=== PATIENT | female | born 1995 | race Caucasian/White ===

== ENCOUNTER 2021-09-13 09:24 | Observation (INO) | payer BC, SELFPAY ==
[2021-09-13 10:01] VITALS: BP 127/76; PULSE 95
--- NOTE | 2021-09-13 10:10 | OBADM ---
This patient, Lizet Russ, admitted to the OB room OB Post 116 for observation. Patient/family oriented to hospital policies and general routines including ID bracelet, bed and alarms, visiting hours, pain management, procedures, bathroom and other care routines, personal items, smoking policy, room service/diet, and visiting hours. Patient/Family are encouraged to report perceived risks to care and to ask questions if they do not understand what they are told or what they should do.
[2021-09-13 10:16] VITALS: BP 122/74; PULSE 85
--- NOTE | 2021-09-13 10:28 | PC.NURSE ---
1021- Spoke with Dr. Hernandez, informed of patient admission for vaginal pressure. Orders to do gentle SVE and discharge patient home if cervix not open.
--- NOTE | 2021-09-20 11:49 | PM.OBTRLD ---
OB - Triage/Final Diagnosis Visit Information Comments/Additional reasons for admission: I have assessed the risk for this patient, Lizet Russ, and determined that she would benefit from observation care. Final Diagnosis (1) Pelvic pressure in : Code(s): O26.899 - Other specified related conditions, unspecified trimester; R10.2 - Pelvic and perineal pain Status: Acute
== END 2021-09-13 10:35 | disposition home or self-care (01) ==
PROVIDERS: Admitting Provider Obstetrics & Gynecology; Visit Provider Obstetrics & Gynecology
DX: O26.899 Other specified pregnancy related conditions, unspecified trimester (principal); R10.9 Unspecified abdominal pain; Z3A.00 Weeks of gestation of pregnancy not specified
CPT/HCPCS: G0378; G0379

== ENCOUNTER 2021-10-12 16:02 | Inpatient (IN) | payer BC, SELFPAY ==
[2021-10-12] VITALS (14 sets, daily range): BP systolic 129–135; BP diastolic 68–84; PULSE 78–119; RESP 18; TEMP 36.3; O2SAT 97–100; BMI 37.0
--- NOTE | 2021-10-12 16:53 | LDADM ---
This patient, Lizet Russ, was admitted to Labor/Delivery/Recovery 106 on 10/12/21 at 16:02. Plans for labor, pain management and were discussed with patient. Patient/family oriented to hospital policies and general routines including ID bracelet, bed and alarms, visiting hours, pain management, procedures, bathroom and other care routines, personal items, smoking policy, room service/diet and guest tray routines, security routines, and visiting hours. Patient/Family are encouraged to report perceived risks to care and to ask questions if they do not understand what they are told or what they should do. See OBIX for further documentation.
[2021-10-12 17:28] LABS: Basophils Percent Auto 0.3 % (0.2-1.2); Eosinophils Percent Auto 0.4 % (0-4.4); Hematocrit 37.2 % (37.0-47.0); Hemoglobin 12.7 g/dL (12.0-15.0); Immature Granulocyte Absolute 0.04 K/mm3 (0.00-0.031); Immature Granulocyte Percent A 0.4 % (0-0.5); Lymphocytes Absolute Auto 1.67 K/mm3 (0.9-3.2); Lymphocytes Percent Auto 15.1 % (18.3-44.2); Mean Corpuscular HGB Conc 34.1 g/dl (32-36); Mean Corpuscular Hemoglobin 32.1 pg (26-34); Mean Corpuscular Volume 93.9 fl (80-100); Mean Platelet Volume 11.5 fl (7.4-10.4); Monocytes Absolute Auto 0.6 K/mm3 (0.1-0.6); Monocytes Percent Auto 5.8 % (2.6-8.5); Neutrophils Absolute Auto 8.6 K/mm3 (1.3-6.7); Platelet Count Result 204 k/mm3 (150-375); Red Blood Count 3.96 M/mm3 (4.2-5.4); Red Cell Distribution Width 12.6 % (11.5-14.5)
[2021-10-12] MEDS: DINOPROSTONE 10 MG VAG INSERT VAGINAL (17:37)
--- NOTE | 2021-10-12 20:15 | WPDANESEPP ---
Anes - Eval Pre Procedure Procedure: Labor epidural Date/Time: 10/12/21 20:15 Surgeon: jayson Pre Op Diagnosis: iol Patient Data Age: 26 Gender: F Height: 1.57 m Weight: 92 kg Last Vital Signs Pulse 82 10/12/21 18:12 BP 129/68 10/12/21 18:12 Pulse Ox 99 10/12/21 17:12 O2 Del Method Room Air 10/12/21 16:52 Allergies Allergy/AdvReac Type Severity Reaction Status Date / Time No Known Allergies Allergy Verified 10/12/21 16:57 Home Medications Medication Instructions Recorded Confirmed Type calcium carb-vitamin D3 ER 600 mg 1 tablet PO DAILY 09/20/21 10/12/21 History (1,500 mg)-500 unit tablet,ER 24 hr docusate sodium 100 mg capsule 100 mg PO DAILY 09/20/21 10/12/21 History (Colace) ferrous sulfate 325 mg (65 mg 325 mg PO DAILY 09/20/21 10/12/21 History iron) tablet lorazepam 0.5 mg tablet 0.5 mg PO DAILY PRN Anxiety 09/20/21 10/12/21 History prenat.vits,karoline,yjn-yshb-rsooo 1 tablet PO HS 09/20/21 10/12/21 History Laboratory Tests 10/12/21 10/12/21 10/12/21 17:15 17:15 17:15 WBC 11.0 K/mm3 H K/mm3 (4.5-10.0) RBC 3.96 M/mm3 L M/mm3 (4.2-5.4) Hgb 12.7 g/dL g/dL (12.0-15.0) Hct 37.2 % % (37.0-47.0) MCV 93.9 fl fl (80-100) MCH 32.1 pg pg (26-34) MCHC 34.1 g/dl g/dl (32-36) RDW 12.6 % % (11.5-14.5) Plt Count 204 k/mm3 k/mm3 (150-375) MPV 11.5 fl H fl (7.4-10.4) Immature Gran % (Auto) 0.4 % % (0-0.5) Neut % (Auto) 78.0 % H % (45.5-73.1) Lymph % (Auto) 15.1 % L % (18.3-44.2) Dare % (Auto) 5.8 % % (2.6-8.5) Eos % (Auto) 0.4 % % (0-4.4) Baso % (Auto) 0.3 % % (0.2-1.2) Lymph # (Auto) 1.67 K/mm3 K/mm3 (0.9-3.2) Dare # (Auto) 0.6 K/mm3 K/mm3 (0.1-0.6) Eos # (Auto) 0.0 K/mm3 K/mm3 (0-0.3) Baso # (Auto) 0.0 K/mm3 K/mm3 (0.0-0.1) Abs Immat Gran (auto) 0.04 K/mm3 H K/mm3 (0.00-0.031) Absolute Neuts (auto) 8.6 K/mm3 H K/mm3 (1.3-6.7) Absolute Nucleated RBC 0.0 K/mm3 K/mm3 (0.0-0.012) Nucleated RBC % 0.0 % % (0.0-0.2) RPR Pending Blood Type O Positive Antibody Screen Negative Patient hx anesthesia problems: none Family hx anesthesia problems: none Results Review: All pre-operative results and documents have been reviewed as part of the pre-operative evaluation. [facility] Past Medical History Medical History (Updated 10/12/21 @ 20:17 by Monica Cifuentes CRNA) Anemia Anxiety and depression Obesity (BMI 30-39.9) Social History Social History Smoking status: Never smoker Second hand tobacco smoke exposure: No Substance use: never Spiritual care concerns: No Exam Day of Procedure 10/12/21 20:15 Heart: regular rate and rhythm Lungs: normal air movement Airway: Mallampati scale Neurological: alert and oriented
[2021-10-13] VITALS (175 sets, daily range): BP systolic 71–163; BP diastolic 15–107; PULSE 53–299; RESP 14–18; TEMP 36.2–37.7; O2SAT 96–100
[2021-10-13] MEDS: ZOLPIDEM TARTRATE (*CRX) 5 MG TABLET PO (01:03)
[2021-10-13] MEDS: LACTATED RINGERS 1,000 ML 125 ML IV CONT ×2 (04:00→10:42)
[2021-10-13] MEDS: OXYTOCIN 30 UNITS/NS 500 ML 30 UNITS/500 ML BAG 6 UNITS IV CONT (04:30)
[2021-10-13 05:54] LABS: Rapid Plasma Reagin Non-Reactive (NonReactive)
[2021-10-13] MEDS: fentaNYL CITRATE INJ (*CRX) 100 MCG/2 ML VIAL 50 MCG IV PUSH (06:35)
--- NOTE | 2021-10-13 08:50 | WPDOBADMIT ---
Obstetrics - Admit Note Admission Note: record reviewed. Additions to the history and/or subsequent changes in the physical findings follow. 26 y/o G1 at 40 3/7 weeks here for induction of labor. Cervidil last evening, then had SROM, so it was withdrawn. Now feeling more painful contractions. GBS neg. AVSS NST reactive TOCO: contractions every 2-4 min ABD soft, nontender, gravid, verrtex EXT nontender Cervix 3/80/-2. Gross ROM. A: IUP at term here for induction of labor. P: Oxytocin as needed. Anticipate .
--- NOTE | 2021-10-13 11:51 | PM.OBPNLAB ---
Pain Control Date/time seen: 10/13/21 11:51 Comments: Comfortable with epidural. AVSS NST reactive, with variable decelerations with early timing. Cervix 4-5/90/-1 Continue labor. Amnioinfusion as needed.
[2021-10-13] MEDS: SODIUM CHLORIDE 0.9% IV 300 ML 600 ML I-UTERINE (12:13)
--- NOTE | 2021-10-13 17:34 | PM.OBPRVD ---
OB - Delivery Note Procedure Delivery date: 10/13/21 Procedure: Induction of labor with Induction method: Per Pitocin Protocol Delivery augmentation: Pitocin Delivery monitor: External FHT, External Uterine, Internal FHT and Internal Uterine Route of delivery: Laceration Description: Vaginal Delivery repair: vicryl (3-0) Quantitative Blood Loss (ml): 120 Anesthesia type: Epidural Disposition: PACU Complications: None Narrative: 26 y/o G1 at 40 3/7 weeks gestation who presented to the hospital for induction of labor. Cervidil was placed overnight. She had SROM and the Cervidil was withdrawn. Oxytocin was administered intravenously. She received an epidural for pain control. Her labor progressed and her cervix dilated completely. She pushed with good effort and delivered the 's head to the perineum. A loose nuchal cord was reduced and the body delivered. The cored was reduced and the nose and mouth were bulb suctioned. After a delay, the cord was clamped and cut. The was handed off the field. Cord blood was collected. The placenta delivered spontaneously and was grossly normal in appearance. The usual 3 vessel cord was noted. A shallow, distal vaginal laceration was sustained. This was reapproximated using 3 0 Vicryl in a single ytzsph-ud-xogsg stitch. Excellent hemostasis resulted as did excellent reapproximation of the normal anatomy. Needle and instrument counts were correct. The patient was taken to recovery room in stable condition. The infant went to the nursery in stable condition. I was present and scrubbed for the entire delivery. [place] Baby Date of : 10/13/21 Time of : 17:22 Weeks of gestation at delivery: 40 Infant gender: Male Weight (pounds): 7 Weight (ounces): 2 presentation: vertex position: Left Occiput Anterior Placenta delivery description: Spontaneous and Normal Configuration Cord Vessel Description: 3 Vessels and Delayed Cord Clamping score one minute: 9 score five minutes: 9
--- NOTE | 2021-10-13 17:37 | PM.OBDSVD ---
DS: Admitting Diagnosis Discharge Date 10/15/21 Admitting Diagnosis IUP at 40 3/7 weeks DS: Discharge Diagnosis Discharge Diagnosis (1) (normal spontaneous vaginal delivery): Code(s): O80 - Encounter for full-term uncomplicated delivery Status: Acute OB - DS: Summary OB Procedures : None OB Procedures Intrapartum: Spontaneous Vag Delivery OB Procedures: : None Time Spent with Patient Time attestation: Total time spent providing and/or coordinating discharge services: DS: Data Data Completed and Pending Labs on day of discharge: Labs from last 24 hours 10/12/21 10/12/21 17:15 17:15 RPR Non-reactive Blood Type O Positive Antibody Screen Negative Discharge Plan Discharge Attending physician on discharge: Luigi Hernandez Discharging Clinician: Luigi Hernandez Patient Disposition: Home, Self-Care Activity: pelvic rest Diet: regular Discharge Instructions: Call or return if temperature above 100.4? F, increased abdominal pain, increased vaginal bleeding or any new problems. Stand Alone Forms: General Discharge Information Follow-up/Referrals: Luigi Hernandez MD [Physician] - 6 Weeks Discharge Medications: New ibuprofen 600 mg tablet 600 mg PO Q6H PRN (Reason: cramps) Qty: 30 0RF Continued #2 Tablet 1 tablet PO HS lorazepam 0.5 mg Tablet 0.5 mg PO DAILY PRN (Reason: Anxiety) docusate sodium [Colace] 100 mg Capsule 100 mg PO DAILY All Day Calcium 600 mg(1,500mg) -500 unit Tablet Extended Release 24 Hr 1 tablet PO DAILY Discontinued ferrous sulfate 325 mg (65 mg iron) Tablet 325 mg PO DAILY Date of admission: 10/12/21 16:02 Primary Care Provider: Dana Ventura Admitting Provider: Luigi Hernandez Attending physician on admission: Luigi Hernandez Condition: Stable
[2021-10-13] MEDS: OXYTOCIN 30 UNITS/NS 500 ML 30 UNITS/500 ML BAG 125 UNITS IV CONT (17:58)
[2021-10-13] MEDS: WITCH HAZEL 40 PADS 1 PAD TOPICAL (19:55)
[2021-10-13] MEDS: BENZOCAINE 20% AER SPR (*SP) 56 GM CAN 1 SPRAY TOPICAL (19:55)
--- NOTE | 2021-10-13 20:00 | PC.NURSE ---
Patient transferred to post room #281 per wheelchair from labor and delivery. Support person present. Oriented to unit, room, information board, rooming in, admission packet and security measures. Patient verbalizes understanding.
[2021-10-13] MEDS: IBUPROFEN 600 MG TABLET PO (23:22)
[2021-10-13] MEDS: ACETAMINOPHEN 325 MG TABLET 650 MG PO (23:22)
[2021-10-14] VITALS: BP 129/67; PULSE 87; RESP 16; TEMP 37
[2021-10-14 03:54] VITALS: BP 116/63; PULSE 76; RESP 18; TEMP 36.8
[2021-10-14 05:57] LABS: Hematocrit 33.2 % (37.0-47.0); Hemoglobin 11.4 g/dL (12.0-15.0)
[2021-10-14 08:50] VITALS: BP 110/57; PULSE 64; RESP 18; TEMP 36.5; O2SAT 100
[2021-10-14] MEDS: ACETAMINOPHEN 325 MG TABLET 650 MG PO (10:54)
[2021-10-14] MEDS: MULTIVIT/MIN/PREN/FOL AC/IRON TABLET 1 TAB PO (10:54)
[2021-10-14] MEDS: IBUPROFEN 600 MG TABLET PO (10:55)
[2021-10-14 12:08] VITALS: BP 122/66; PULSE 70; RESP 16; TEMP 36.8; O2SAT 98
--- NOTE | 2021-10-14 14:33 | PM.OBPNVD ---
OB - PN: Subj Subjective Date/time seen: 10/14/21 14:33 Narrative: Pain OK. Would like circumcision for son. OB - PN: Obj Data Labs CBC & Chem 7: 10/14/21 04:54 Labs: Laboratory Results - last 24 hr 10/14/21 04:54 Hgb 11.4 L Hct 33.2 L OB - PN A/P Plan Comments: A: PPD#1, doing well. P: Routine care. Reviewed circ. Exam Psych: Other: AVSS ABD soft, nontender, fundus firm EXT nontender
--- NOTE | 2021-10-14 14:52 | WPDANLDPN2 ---
Anes-Prog Note L&D Date/Time: 10/14/21 14:52 Neuro status: Neuro function grossly intact. Vital Signs: Last Vital Signs Temp 36.8 C 10/14/21 12:08 Pulse 70 10/14/21 12:08 Resp 16 10/14/21 12:08 BP 122/66 10/14/21 12:08 Pulse Ox 98 10/14/21 12:08 O2 Del Method Room Air 10/12/21 16:52 Pain score (VAS): 0 I/O: Intake & Output 10/13/21 10/14/21 10/14/21 23:59 07:59 15:59 Intake Total 240 Output Total 120 Balance 120 Patient feedback: Patient satisfied with anesthetic care.
--- NOTE | 2021-10-14 14:53 | PC.NURSE ---
[id number] Introductions were made, then consulted with patient to assess needs related to . Mother led the conversation with her experience feeding her so far. Mother works well with her with encouragement and education. Encouraged understanding of the benefits of skin to skin (unwrapping and placing vertically on her chest), responsive feeding and how to watch for early feeding signs, frequency of feeding on demand about every 8-12 times in 24 hours (every 2-3 hours), milk production, duration of feeding, signs of adequate intake/output and how to record on the feeding sheet. Reviewed positioning and ear, shoulder, hip alignment, supporting the breast, asymmetrical latch (off-center), and leading with the chin with a big open side gape. Infant latched optimally to the left breast in football position. Education given to mother of how to visualize suck/swallow ratios and drinking at the breast. Infant was able to maintain latch without discomfort to mother. Nipple care reviewed with optimal latch and good positioning. Reminding mother of comfort measures of healing with a warm and wet washcloth to rinse breast, then leave open to air-dry as needed. Reviewed good handwashing when or touching the breast/nipples to prevent infection. Resources used to facilitate learning were used with the visual handouts/ tool/mom and baby guide. Mother states it is more difficult to latch to the right breast. Mother voiced understanding of responsive feedings, stimulating with skin to skin, hand expressed colostrum, talking to to encourage if it has been 2 -3 hours since the start of the last , to call if does not latch or there is discomfort with . Mother plans to call for assistance with latching to the right breast if needed. Reported to the primary RN. [id number] Consulted with patient to assess needs related to . Mother led conversation with her experience with feeding baby so far. Mother works well with her with encouragement. Reviewed working with infant, breast, nipples and how to protect the nipples with an optimal deep latch, good positioning, and good hand washing. Encouraged understanding the benefits of skin to skin, responding to feeding cues, frequencies of feeding 8-12 times in 24 hours (approximately 2-3 hours), duration of feedings, milk production, intake/output feeding sheet and signs of adequate intake encouraging swallowing at the breast. Father is actively involved with care and mother has tried many of the tricks she has learned to help infant wake to feed. presents with gaggy reflex from time to time. RN changed a large transitional stool diaper as mother gets some lunch to eat. shows minimal feeding cues when placed skin to skin on mother. There's no latch attempt with to the breast. Mother hand expresses 1.5 mls of colostrum and it is syringe fed to while infant sucks on a gloved finger. responds to finger touching the top of the lip with a wide open mouth. Reviewed positioning and alignment, supporting breast, off-centered (asymmetrical latch) and leading with the chin with big open wide gape. Infant latched optimally to the right breast in football position. Education given to mother of how to visualize suck/swallow ratios and drinking at the breast. Infant was able to maintain latch without discomfort to mother. Nipple care reviewed with optimal latch and good positioning. Reviewed using clean hand when touching her nipples. Resources used to facilitate learning were used from the visual handout/ tool/mom and baby guide. Mother voiced understanding of the education shared, calling for assistance if the infant does not latch or if there is discomfort with . Reported to the primary RN.
[2021-10-14 16:45] VITALS: BP 102/60; PULSE 72; RESP 12; TEMP 36.4
[2021-10-14 20:02] VITALS: BP 128/78; PULSE 75; RESP 18; TEMP 36.7; O2SAT 98
[2021-10-15 09:00] VITALS: BP 122/83; PULSE 64; RESP 16; TEMP 36.6
[2021-10-15] MEDS: IBUPROFEN 600 MG TABLET PO (10:36)
[2021-10-15] MEDS: MULTIVIT/MIN/PREN/FOL AC/IRON TABLET 1 TAB PO (10:36)
--- NOTE | 2021-10-15 11:24 | PM.OBPNVD ---
OB - PN: Subj Subjective Date/time seen: 10/15/21 11:24 Narrative: Pain OK. Would like to go home. OB - PN: Obj Data Labs CBC & Chem 7: 10/14/21 04:54 OB - PN A/P Plan Comments: A: PPD#2, doing well. P: Home to f/u 6 weeks. Exam Psych: Other: AVSS ABD soft, nontender, fundus firm EXT nontender
[2021-10-17 14:18] VITALS: BP 132/76; PULSE 78; RESP 16; TEMP 36.8; O2SAT 98
== END 2021-10-15 13:01 | disposition home or self-care (01) | DRG 807 ==
LOC: ANHLDR 10-13 17:38 → ANHOB2 10-13 20:02
PROVIDERS: Admitting Provider Obstetrics & Gynecology; Visit Provider Obstetrics & Gynecology
DX: O36.8330 Maternal care for abnormalities of the fetal heart rate or rhythm, third trimester, not applicable or unspecified (principal); Z37.0 Single live birth; Z3A.40 40 weeks gestation of pregnancy; O70.1 Second degree perineal laceration during delivery
CPT/HCPCS: 36415; 84112; 85014; 85018; 85025; 86592; 86850; 86900; 86901; A9270; J2590; J2795; J3010; J7030; J7120

== ENCOUNTER → 2023-04-19 15:32 | Outpatient (CLI) | payer BC, SELFPAY ==
--- NOTE | ~2023-04-19 | US_ITS ---
EXAMINATION: US OB /maternal detail DATE: 04/19/2023 16:12 INDICATION: Encounter for screening for malformation. TECHNIQUE: Real-time ultrasound of the pelvis was performed. COMPARISON: None. FINDINGS: There is a single living fetus in vertex presentation. The placenta is anterior and fundal, 9.5 cm f rom the cervix.. heart rate is 139 beats per minute (bpm). The cervical length is 4.1 cm on tra nsabdominal images, which is normal. The amniotic fluid volume is subjectively normal. The following biometric data were obtained: Biparietal diameter (BPD): 4.9 cm; head circumference (HC): 18.3 cm; abdominal circumference (AC): 15 .8 cm; femur length (FL): 3.2 cm. These measurements are concordant. Estimated weight is 356 g +/- 53 g, which correlates with the 40th percentile when 09/02/23 is u sed as estimated date of delivery. As single measurements, these parameters are each equal to the following estimated gestational ages: BPD: 20 weeks 6 days. HC: 20 weeks 5 days. AC: 20 weeks 6 days. FL: 19 weeks 6 days. estimated gestational age based solely on measurements from this exam is 20 weeks 4 days +/- 1 weeks 3 days. The cerebral ventricles, cerebellum, cisterna magna, nuchal fold, lip, and visualized portions of the spine are normal. The heart is normal. The diaphragm, stomach, kidneys, and bladder are normal. Ther e are two umbilical arteries to yield a 3-vessel cord. The cord insertion is normal. IMPRESSION: 1. Single living fetus in vertex presentation. 2. Estimated weight is 356 g +/- 53 g, which correlates with the 40th percentile when 09/02/23 is used as estimated date of delivery. 3. Normal anatomic survey. Reviewed, dictated and finalized at location E. POL[facility]ER IMPRESSION: 1. Single living fetus in vertex presentation. 2. Estimated weight is 356 g +/- 53 g, which correlates with the 40th pe rcentile when 09/02/23 is used as estimated date of delivery. 3. Normal anatomic survey.
== END ==
PROVIDERS: PCP Obstetrics & Gynecology; Visit Provider Obstetrics & Gynecology
DX: Z36.3 Encounter for antenatal screening for malformations (principal)
CPT/HCPCS: 76805

== ENCOUNTER 2023-08-19 07:07 | Inpatient (IN) | payer BC, SELFPAY ==
[2023-08-19] VITALS (105 sets, daily range): BP systolic 101–163; BP diastolic 43–148; PULSE 49–224; RESP 18; TEMP 36.3–37.2; O2SAT 86–100; BMI 36.3
[2023-08-19] MEDS: LACTATED RINGERS 1,000 ML 125 ML IV CONT ×2 (08:07→12:34)
[2023-08-19] MEDS: OXYTOCIN 30 UNITS/NS 500 ML 30 UNITS/500 ML BAG IV CONT (08:07)
--- NOTE | 2023-08-19 08:14 | LDADM ---
This patient, Lizet Russ, was admitted to Labor/Delivery/Recovery 107 on 08/19/23 at 07:07. Plans for labor, pain management and were discussed with patient. Patient/family oriented to hospital policies and general routines including ID bracelet, bed and alarms, visiting hours, pain management, procedures, bathroom and other care routines, personal items, smoking policy, room service/diet and guest tray routines, security routines, and visiting hours. Patient/Family are encouraged to report perceived risks to care and to ask questions if they do not understand what they are told or what they should do. See OBIX for further documentation.
[2023-08-19 08:25] LABS: Basophils Percent Auto 0.4 % (0.2-1.2); Eosinophils Absolute Auto 0.1 K/mm3 (0-0.3); Eosinophils Percent Auto 0.9 % (0-4.4); Hematocrit 35.2 % (37.0-47.0); Hemoglobin 11.9 g/dL (12.0-15.0); Immature Granulocyte Absolute 0.04 K/mm3 (0.00-0.031); Immature Granulocyte Percent A 0.6 % (0-0.5); Lymphocytes Absolute Auto 1.97 K/mm3 (0.9-3.2); Lymphocytes Percent Auto 28.7 % (18.3-44.2); Mean Corpuscular HGB Conc 33.8 g/dl (32-36); Mean Corpuscular Hemoglobin 30.9 pg (26-34); Mean Corpuscular Volume 91.4 fl (80-100); Mean Platelet Volume 12.8 fl (7.4-10.4); Monocytes Absolute Auto 0.6 K/mm3 (0.1-0.6); Monocytes Percent Auto 8.3 % (2.6-8.5); Neutrophils Absolute Auto 4.2 K/mm3 (1.3-6.7); Neutrophils Percent Auto 61.1 % (45.5-73.1); Platelet Count Result 149 k/mm3 (150-375); Red Blood Count 3.85 M/mm3 (4.2-5.4); Red Cell Distribution Width 13.1 % (11.5-14.5); White Blood Count 6.9 K/mm3 (4.5-10.0)
--- NOTE | 2023-08-19 08:43 | WPDOBADMIT ---
Obstetrics - Admit Note Admission Note: record reviewed. No pertinent additions to the history and/or any subsequent changes in the physical findings that are not consistent with the expected course of the were found. Additions to the history and/or subsequent changes in the physical findings follow. None. Admitted at 37 3 with SROM not in labor. Cervix /high. Will augment with pitocin. FHT cat I
--- NOTE | 2023-08-19 13:48 | WPDANESEPPF ---
Anes - Initial Pre Proc Eval Procedure: labor epidural Date/Time: 08/19/23 13:48 Surgeon: Luigi Hernandez MD Pre Op Diagnosis: labor pain Pre Op Diagnosis: leaking Patient Data Age: 27 Gender: F Height: 1.57 m Weight: 90 kg Last Vital Signs Temp 36.4 C 08/19/23 12:00 Pulse 73 08/19/23 13:46 BP 133/79 08/19/23 13:46 Pulse Ox 99 08/19/23 13:46 O2 Del Method Room Air 08/19/23 08:13 Allergies Allergy/AdvReac Type Severity Reaction Status Date / Time No Known Allergies Allergy Verified 08/19/23 08:19 Home Medications Medication Instructions Recorded Confirmed Type docusate sodium 100 mg capsule 100 mg PO DAILY 09/20/21 10/12/21 History (Colace) lorazepam 0.5 mg tablet 0.5 mg PO DAILY PRN Anxiety 09/20/21 10/12/21 History prenat.vits,karoline,pew-pqgd-nexzk 1 tablet PO HS 09/20/21 10/12/21 History sertraline 100 mg tablet mg 08/19/23 08/19/23 History Laboratory Tests 08/19/23 08:08 WBC 6.9 K/mm3 (4.5-10.0) RBC 3.85 L M/mm3 (4.2-5.4) Hgb 11.9 L g/dL (12.0-15.0) Hct 35.2 L % (37.0-47.0) MCV 91.4 fl (80-100) MCH 30.9 pg (26-34) MCHC 33.8 g/dl (32-36) RDW 13.1 % (11.5-14.5) Plt Count 149 L k/mm3 (150-375) MPV 12.8 H fl (7.4-10.4) Immature Gran % (Auto) 0.6 H % (0-0.5) Neut % (Auto) 61.1 % (45.5-73.1) Lymph % (Auto) 28.7 % (18.3-44.2) Harlan % (Auto) 8.3 % (2.6-8.5) Eos % (Auto) 0.9 % (0-4.4) Baso % (Auto) 0.4 % (0.2-1.2) Lymph # (Auto) 1.97 K/mm3 (0.9-3.2) Harlan # (Auto) 0.6 K/mm3 (0.1-0.6) Eos # (Auto) 0.1 K/mm3 (0-0.3) Baso # (Auto) 0.0 K/mm3 (0.0-0.1) Abs Immat Gran (auto) 0.04 H K/mm3 (0.00-0.031) Absolute Neuts (auto) 4.2 K/mm3 (1.3-6.7) Absolute Nucleated RBC 0.000 K/mm3 (0.0-0.012) Nucleated RBC % 0.0 % (0.0-0.2) RPR Pending Blood Type O Positive Antibody Screen Negative Patient hx anesthesia problems: none Family hx anesthesia problems: none Results Review: All pre-operative results and documents have been reviewed as part of the pre-operative evaluation. [facility] Past Medical History Medical History (Updated 10/13/21 @ 17:37 by Luigi Hernandez MD) Anemia Anxiety and depression Obesity (BMI 30-39.9) Family History Family History (Updated 08/15/23 @ 14:37 by Jonathon Jamison RN) Father Hypertension Social History Social History Smoking status: Never smoker Second hand tobacco smoke exposure: No Substance use: never Do You Feel Safe in your Home?: Yes Lack of Transportation: No Lack of Food: Never True Current Housing: I Have Housing Concerned About Future Housing: No Difficulty Paying Gas/Electric Bills: No Difficulty Paying for Meds: No Currently Unemployed: No Education: Associate Degree Difficulty w/ Childcare or Family Care: No Spiritual care concerns: No Anes - Eval Final PreProcedure Day of Procedure 08/19/23 13:48 Patient weight: obese ASA classification: II Anesthetic plan: proceed Anesthesia type and monitoring: regional epidural and standard monitoring Results Review: All pre-operative results and documents have been reviewed as part of the pre-operative evaluation. Informed Consent: The patient's anesthetic plan and its attendant risks and benefits were discussed with the patient/family/POA. Questions were solicited and answers provided to the satisfaction of the patient/family/POA.
--- NOTE | 2023-08-19 15:17 | PM.OBPRVD ---
OB - Vaginal Delivery Note Procedure Delivery date: 08/19/23 Delivery augmentation: Pitocin Delivery monitor: External FHT and External Uterine Route of delivery: Laceration Description: None Specimen: No Quantitative Blood Loss (ml): 100 Anesthesia type: Epidural Disposition: Floor Complications: No immediate complications Baby Date of : 08/19/23 Weeks of gestation at delivery: 37 (37 4/7) Infant gender: Male presentation: vertex position: Right Occiput Anterior Placenta delivery description: Spontaneous Cord Vessel Description: 3 Vessels, Tight and Around Body (shoulder and body)
--- NOTE | 2023-08-19 15:18 | PM.OBDSVD ---
DS: Admitting Diagnosis Discharge Date 08/20/23 Admitting Diagnosis IUP 37 07/21 with SROM not in labor DS: Discharge Diagnosis Discharge Diagnosis (1) (normal spontaneous vaginal delivery): Code(s): O80 - Encounter for full-term uncomplicated delivery Status: Acute OB - DS: Summary OB Procedures : Ultrasound OB Procedures Intrapartum: Spontaneous Vag Delivery OB Procedures: : None Peripartum Data Infant Delivery Method: Natural Vaginal Laceration Description: None complications: none Status at Discharge Functional status at discharge: independent ambulation Overall status at discharge: patient is progressing back to baseline Time Spent with Patient Time attestation: Total time spent providing and/or coordinating discharge services: DS: Data Data Completed and Pending Labs on day of discharge: Labs from last 24 hours 08/19/23 08:08 WBC 6.9 RBC 3.85 L Hgb 11.9 L Hct 35.2 L MCV 91.4 MCH 30.9 MCHC 33.8 RDW 13.1 Plt Count 149 L MPV 12.8 H Immature Gran % (Auto) 0.6 H Neut % (Auto) 61.1 Lymph % (Auto) 28.7 Grimes % (Auto) 8.3 Eos % (Auto) 0.9 Baso % (Auto) 0.4 Lymph # (Auto) 1.97 Grimes # (Auto) 0.6 Eos # (Auto) 0.1 Baso # (Auto) 0.0 Abs Immat Gran (auto) 0.04 H Absolute Neuts (auto) 4.2 Absolute Nucleated RBC 0.000 Nucleated RBC % 0.0 RPR Pending Blood Type O Positive Antibody Screen Negative Discharge Plan Discharge Attending physician on discharge: Luigi Hernandez Consulting providers: Jalil Lindsey; Harvey Mcdonnell Discharging Clinician: Luigi Hernandez Anticipated Discharge Date/Time: 08/21/23 15:19 Patient Disposition: Home, Self-Care Activity: may shower and pelvic rest Diet: regular Discharge Instructions: Call or return if temperature above 100.4? F, increased abdominal pain, increased vaginal bleeding or any new problems. Education: Mom and Baby Guide Given to: Mother Follow-Up: Call your delivering provider's office for an appointment to be seen in: 4 Weeks Mom and baby should come to the [facility] for the follow-up appointment. Appointment Date/Time: August 22, 2023 at 11:00 am What to expect at your follow-up visit: Physical Assessment Call [phone] if you are unable to keep your appointment time. BREAST CARE: * Wear a snug supportive bra. * For engorgement discomfort: Breast Feeding: * Apply warm moist washcloths * Express milk as needed to relieve engorgement * Wear loose clothing * For sore nipples: * Identify correct latch-on * Apply warm moist washcloths before and after nursing * Air dry nipples after nursing * May apply Lansinoh cream to nipples EPISIOTOMY/PERINEAL CARE: * Until bleeding stops, use your genesis bottle after urinating * Change your pad frequently throughout the day * You may take sitz baths several times a day (fill your bathtub with warm water and soak for 20 minutes.) Do NOT bathe in the water * No tub baths until seen by your physician - You may shower ACTIVITY: * Rest as much as possible. * Do not exercise or lift anything heavier than your baby (such as laundry or other children.) * Avoid stairs or driving as much as possible. * Do not put anything into the vagina. No douching, tampons, or sexual activity until seen by physician. NOTIFY PHYSICIAN IF YOU HAVE ANY QUESTIONS OR IF ANY OF THE FOLLOWING SYMPTOMS OCCUR: * If your perineum becomes red, swollen, or more painful than what you have experienced in the hospital. * If your vaginal bleeding becomes foul smelling. * If your vaginal bleeding becomes more heavy than a period or if your bleeding changes from pink to bright red. However, you may pass an occasional walnut-sized clot once or twice for the first week . * If you experience a sharp, shooting pain in you calves. * If you discov
[2023-08-19] MEDS: OXYTOCIN 30 UNITS/NS 500 ML 30 UNITS/500 ML BAG 125 UNITS IV CONT (15:40)
[2023-08-19] MEDS: BENZOCAINE 20% AER SPR (*SP) 56 GM CAN 1 SPRAY TOPICAL (17:20)
[2023-08-19] MEDS: WITCH HAZEL 40 PADS 1 PAD TOPICAL (17:20)
[2023-08-20 00:54] VITALS: BP 120/74; PULSE 62; RESP 18; TEMP 36.7; O2SAT 98
[2023-08-20] MEDS: IBUPROFEN 600 MG TABLET PO (04:24)
[2023-08-20 05:29] LABS: Hematocrit 35.1 % (37.0-47.0); Hemoglobin 11.8 g/dL (12.0-15.0)
--- NOTE | 2023-08-20 07:29 | WPDANLDPN2 ---
Anes-Prog Note L&D Date/Time: 08/20/23 07:29 Comfortable throughout: labor and delivery Neuraxial method: epidural Epidural/Spinal procedure site: clean & non-tender Neuro status: Neuro function grossly intact. Cardiovascular status: normal Respiratory status: normal Airway patency: baseline Mental status: baseline Post-Op hydration status: normal Vital Signs: Last Vital Signs Temp 36.7 C 08/20/23 00:54 Pulse 62 08/20/23 00:54 Resp 18 08/20/23 00:54 BP 120/74 08/20/23 00:54 Pulse Ox 98 08/20/23 00:54 O2 Del Method Room Air 08/19/23 21:40 Pain score (VAS): 1 I/O: Intake & Output 08/19/23 08/19/23 08/20/23 15:59 23:59 07:59 Intake Total 1000 Output Total 100 50 Balance 900 -50 Post-procedural complaints: none Patient feedback: Patient satisfied with anesthetic care.
[2023-08-20] MEDS: MULTIVIT/MIN/PREN/FOL AC/IRON TABLET 1 TAB PO (08:14)
[2023-08-20 08:25] VITALS: BP 130/80; PULSE 66; RESP 16; TEMP 36.8; O2SAT 98
[2023-08-20 09:05] LABS: Rapid Plasma Reagin Non-Reactive (NonReactive)
--- NOTE | 2023-08-20 13:03 | PM.OBPNVD ---
OB - PN: Subj Subjective Date/time seen: 08/20/23 13:03 Narrative: Pain OK. Would like circumcision for son. Would like to go home. OB - PN: Obj Data Labs 08/20/23 04:35 Labs: Laboratory Results - last 24 hr 08/19/23 08/20/23 08:08 04:35 Hgb 11.8 L Hct 35.1 L RPR Non-reactive OB - PN A/P Plan Comments: A: PPD#1, doing well. P: Reviewed circ. Home to f/u 6 weeks. Exam Psych: Other: AVSS ABD soft, nontender, fundus firm EXT nontender
--- NOTE | 2023-08-20 13:07 | P.DS_ITS ---
DS: Admitting Diagnosis Discharge Date 08/20/23 Admitting Diagnosis IUP at 37 weeks SROM DS: Discharge Diagnosis Discharge Diagnosis (1) (normal spontaneous vaginal delivery): Code(s): O80 - Encounter for full-term uncomplicated delivery Status: Acute OB - DS: Summary OB Procedures : None OB Procedures Intrapartum: Spontaneous Vag Delivery OB Procedures: : None Peripartum Data Laceration Description: None Time Spent with Patient Time attestation: Total time spent providing and/or coordinating discharge services: DS: Data Data Completed and Pending Labs on day of discharge: Labs from last 24 hours 08/20/23 08/19/23 04:35 08:08 Hgb 11.8 L Hct 35.1 L RPR Non-reactive Discharge Plan Discharge Attending physician on discharge: Luigi Hernandez Discharging Clinician: Luigi Hernandez Anticipated Discharge Date/Time: 08/21/23 15:19 Patient Disposition: Home, Self-Care Activity: may shower and pelvic rest Diet: regular Discharge Instructions: Call or return if temperature above 100.4? F, increased abdominal pain, increased vaginal bleeding or any new problems. Stand Alone Forms: General Discharge Information Follow-up/Referrals: Luigi Hernandez MD [Physician] - 6 Weeks Discharge Medications: New ibuprofen 600 mg tablet 600 mg PO Q6H PRN (Reason: cramps) Qty: 30 0RF Continued prenat.vits,karoline,xei-jing-hqtco Tablet 1 tablet PO HS lorazepam 0.5 mg Tablet 0.5 mg PO DAILY PRN (Reason: Anxiety) docusate sodium [Colace] 100 mg Capsule 100 mg PO DAILY sertraline 100 mg tablet Date of admission: 08/19/23 07:07 Primary Care Provider: PHYSICIAN,FASHION JOURNALIST Admitting Provider: Luigi Hernandez Attending physician on admission: Luigi Hernandez Condition: Stable
--- NOTE | 2023-08-20 16:10 | PC.NURSE ---
[id number] Introductions were made and Mother verbalizes she is able to independently latch with appropriately without any nipple pain, however; there's discomfort at first, then it subsides. She is responsively . Infant is currently meeting outcomes for weight, output, jaundice, blood sugar and feeding frequencies of 8-12 times in 24 hours. Infant is in the nursery for 24 hour testing at this time. Mother declines any additional assistance or education at this time. Infant has had appropriate feedings in the last 24 hours meets the outcomes for weight, output, blood sugar and jaundice at this time. Reinforced understanding of milk production, transition of milk, signs of adequate intake, transition of stool, prevention/relief of engorgement, plugged ducts, mastitis, responsive watching for feeding cues, the different methods of stimulating to breastfeed 1-3 hours after the start of the last feeding, community resources, and when to call a provider using the resource of the feeding sheet along with the mom and baby guide. Mother voiced understanding of the information shared, is confident to continue effectively her at home, when to call for assistance, denies any additional assistance or education at this time. Reported to the Primary RN.
--- NOTE | 2023-08-20 16:55 | PC.NURSE ---
[id number] Consulted with mother to assess a latch. is sleepy, reluctant, gassy with no feeding cues to respond to. Reviewed [id number], feeding frequencies and sign of effectively and when to call a doctor using the feeding sheet. resources provided for outpatient services. Parents have a successful record with their first child with navigating challenges and share they are confident to go home and breastfeed their . Reported to the Primary RN.
[2023-08-22 11:23] VITALS: BP 135/80; PULSE 89; RESP 18; TEMP 37.2; O2SAT 100
== END 2023-08-20 17:50 | disposition home or self-care (01) | DRG 807 ==
LOC: ANHLDR 15:19 → ANHOB2 17:41
PROVIDERS: Admitting Provider Obstetrics & Gynecology Gynecology; Visit Provider Obstetrics & Gynecology
DX: O62.3 Precipitate labor (principal); Z37.0 Single live birth; O69.2XX0 Labor and delivery complicated by other cord entanglement, with compression, not applicable or unspecified; Z3A.37 37 weeks gestation of pregnancy
CPT/HCPCS: 36415; 84112; 85014; 85018; 85025; 86592; 86850; 86900; 86901; A9270; J2590; J2795; J7120

== ENCOUNTER 2024-02-06 10:12 | Emergency (ER) | payer BC, SELFPAY ==
--- NOTE | ~2024-02-06 | CT_ITS ---
CT brain wo con Ordering provider: Norma Givens PA-C History: 28 years Female with . headache . Comparison: None. Technique: CT of the head without contrast. Radiation reduction technique utilized.The dose-length product was 605.33 mGy-cm. FINDINGS: BRAIN PARENCHYMA AND CSF SPACES: No midline shift, mass effect or hemorrhage. The brain parenchyma a nd CSF spaces are otherwise normal. VISUALIZED PARANASAL SINUSES: Well aerated. MASTOIDS: Well aerated. BONES: The bones appear intact. SOFT TISSUES: Visualized nasopharynx is normal. Superficial soft tissues are normal. IMPRESSION: No acute intracranial findings. Reviewed, dictated and finalized at location A.
[2024-02-06 10:13] VITALS: BP 137/82; PULSE 120; RESP 18; TEMP 36.7; O2SAT 100
--- NOTE | 2024-02-06 11:18 | ED_ITS ---
HPI - Headache General Chief Complaint: Headache Stated Complaint: migraine Time Seen by Provider: 02/06/24 10:48 Source: patient Mode of arrival: ambulatory Limitations: no limitations History of Present Illness HPI Narrative: This is a 28-year-old female that presents to the emergency department for headache. Ongoing since yesterday. Reports the pain is dull and aching in nature. Has been fairly constant. More on the right side of her head. She does not normally get headaches. Did not get much relief with Tylenol yesterday. No recent injuries or trauma. Denies fevers, vomiting, focal numbness or weakness. Related Data Home Medications Medication Instructions Recorded Confirmed sertraline 100 mg tablet 100 mg 02/06/24 Allergies Allergy/AdvReac Type Severity Reaction Status Date / Time No Known Allergies Allergy Verified 02/06/24 10:15 Review of Systems Review of Systems: CONSTITUTIONAL: Denies fever EYES: Reports blurry vision GASTROINTESTINAL: Denies vomiting NEUROLOGIC: Reports headache. Denies numbness, or weakness. PSYCHIATRIC: Reports depression. All systems reviewed & are unremarkable except as noted in HPI and below PMFSH Past Medical History Medical History (Updated 02/06/24 @ 13:27 by Norma Givens PA-C) Anemia Anxiety and depression Obesity (BMI 30-39.9) Family History Family History (Updated 08/15/23 @ 14:37 by Jonathon Jamison RN) Father Hypertension Social History Social History Smoking status: Never smoker Second hand tobacco smoke exposure: No Substance use: never Do You Feel Safe in your Home?: Yes Lack of Transportation: No Lack of Food: Never True Current Housing: I Have Housing Concerned About Future Housing: No Difficulty Paying Gas/Electric Bills: No Difficulty Paying for Meds: No Currently Unemployed: No Education: Associate Degree Difficulty w/ Childcare or Family Care: No Spiritual care concerns: No Exam Narrative: GENERAL: Well-appearing, well-nourished, and in no acute distress. HEAD: Normocephalic, atraumatic. EYES: PERRLA and EOMI. ENT: Nares clear, no rhinorrhea or epistaxis. Mucous membranes moist. Oropharynx without tonsillar hypertrophy exudate or other lesions. Bilateral TMs pearly soto non-bulging NECK: Supple. No adenopathy or masses. Normal range of motion CHEST: Clear to auscultation. No respiratory distress. No wheezes rales or rhonchi HEART: Regular rate and rhythm. No murmur heard. Normal peripheral pulses. ABDOMEN: Soft, nontender, nondistended, normal active bowel sounds. EXTREMITIES: Normal range of motion. No edema. Strength equal in bilateral upper and lower extremities (5/5) SKIN: Warm, dry, no rash. NEURO: No focal deficits. Alert and oriented x3. Cranial nerves 2-12 grossly intact PSYCH: Normal mood and affect Course Course Emergency Course: patient updated on her workup and agrees with plan of care Vital Signs Vital signs: Vital Signs Temperature 98.1 F 02/06/24 10:13 Pulse Rate 120 H 02/06/24 10:13 Respiratory Rate 18 02/06/24 10:13 Blood Pressure 137/82 02/06/24 10:13 Pulse Oximetry 100 02/06/24 10:13 Oxygen Delivery Room Air 02/06/24 10:13 Temperature 98.1 F 02/06/24 10:13 Pulse Rate 120 H 02/06/24 10:13 Respiratory Rate 18 02/06/24 10:13 Blood Pressure 137/82 02/06/24 10:13 Pulse Oximetry 100 02/06/24 10:13 Oxygen Delivery Room Air 02/06/24 10:13 MDM - Headache MDM Narrative Medical decision making narrative: Patient presents to the emergency department for a headache ongoing since yesterday. She is afebrile and nontoxic appearing. She is neurologically intact. Tachycardic upon arrival, this normalized after treatment of her headache. test is negative. CT brain without acute findings. Patient resting after migraine cocktail. Updated on her workup. Agrees with plan of care. She is to follow up with primary provider. She was given warnings to return to the ER Differential Diagnosis Differential diagnosis: Likely migraine, tension headache, headache and sinusitis Lab Data Attestation: I reviewed the patient's lab results. Labs: Lab Results 02/06/24 Range/Units 11:45 POC Urine HCG, Qual Negative (Negative) Imaging Data Radiologist's impression: ITS Impressions Head CT 02/06/24 11:46 IMPRESSION: No acute intracranial findings. Critical Care Time Critical Care Time Critical Care Time: No Discharge Plan Discharge Clinical Impression: Acute headache Qualifiers: Headache type: unspecified Intractability: not intractable Qualified Code(s): R51.9 - Headache, unspecified Patient Disposition: Home, Self-Care Condition: Stable Instructions: Acute Headache (ED) Additional Instructions: Return to the emergency department if you experience fever, chest pain, shortness of breath, vomiting, weakness, numbness, or any other symptoms that are concerning to you. Rest. Remain well hydrated. [id number] pain medication as needed Follow up with primary care doctor Prescriptions: No Action sertraline 100 mg tablet 100 mg Follow-up/Referrals: PHYSICIAN,PRIMER WATERPROOFING MACHINE ADJUSTER [Non-Staff] - Gerald Roach MD [Physician] -
[2024-02-06] MEDS: diphenhydrAMINE HCl INJ 50 MG/ML VIAL 25 MG IV PUSH (11:39)
[2024-02-06] MEDS: METOCLOPRAMIDE HCL INJ 10 MG/2 ML VIAL IV PUSH (11:39)
[2024-02-06] MEDS: SODIUM CHLORIDE 0.9% IV 1,000 ML 999 ML IV CONT (11:39)
[2024-02-06] MEDS: ACETAMINOPHEN 500 MG TABLET 1000 MG PO (11:40)
[2024-02-06 11:47] LABS: BEDSIDEPREGUCG Negative (Negative)
[2024-02-06 13:24] VITALS: BP 104/56; PULSE 71; RESP 14; O2SAT 98
== END 2024-02-06 13:35 | disposition home or self-care (01) ==
PROVIDERS: Emergency Provider Physician Assistant; PCP Internal Medicine
DX: R51.9 Headache, unspecified (principal); E66.9 Obesity, unspecified; Z68.32 Body mass index [BMI] 32.0-32.9, adult; F41.9 Anxiety disorder, unspecified; F32.A Depression, unspecified
CPT/HCPCS: 70450; 81025; 96361; 96374; 96375; 99284; A9270; J1200; J2765; J7030